=== PATIENT | female | born 1950 | race Caucasian/White ===

== ENCOUNTER 2019-07-23 17:52 | Inpatient (IN) | payer OTHER, MEDICARE ==
[~2019-07-23] VITALS: Ht 165.1 cm; Wt 59.4 kg
[2019-07-23] MEDS ORDERED: ACETAMINOPHEN 650 MG SUPP.RECT RC ONE ×2 (18:15→18:45)
[2019-07-23 18:27] LABS: BASOPHILS % (AUTO) 0.4 % (0.0-2.0); EOSINOPHILS % (AUTO) 0.8 % (0.0-7.0); HEMATOCRIT 28.5 % (31.2-41.9); HEMOGLOBIN 9.4 g/dL (10.9-14.3); LYMPHOCYTES # (AUTO) 1.7 K/uL (20.0-40.0); LYMPHOCYTES % (AUTO) 33.2 % (20.5-51.5); MEAN CORPUSCULAR HEMOGLOBIN 33.5 uug (24.7-32.8); MEAN CORPUSCULAR HGB CONC 33 g/dL (32.3-35.6); MEAN CORPUSCULAR VOLUME 101.8 fL (75.5-95.3); MONOCYTES # (AUTO) 0.9 K/uL (2.0-10.0); MONOCYTES % (AUTO) 17.8 % (0.0-11.0); NEUTROPHILS # (AUTO) 2.5 K/uL (1.8-8.9); NEUTROPHILS % (AUTO) 47.8 % (38.5-71.5); PLATELET COUNT (AUTO) 372 K/uL (179-408); WHITE BLOOD COUNT (AUTO) 5.1 K/uL (3.8-11.8)
[2019-07-23 18:37] LABS: CREATININE 0.8 mg/dL (0.6-1.3); POTASSIUM 4.1 mmol/L (3.5-5.1)
[2019-07-23] MEDS: DILTIAZEM HCL 25 MG IV IV ONE ×2 (18:42→19:12)
--- NOTE | 2019-07-23 18:42 | NUR ---
Heart rate =90s/min ,normal sinus rhythm, Dr Greer notified. IV Cardizeesthela on HOLD for now.
[2019-07-23 18:45] LABS: LYMPHOCYTES % (MANUAL) 33 % (20-40); MONOCYTES % (MANUAL) 14 % (2-10); NEUTROPHILS % (MANUAL) 53 % (42-75)
[2019-07-23] MEDS ORDERED: IV NORMAL SALINE 1000 ML BAG IV ONE (18:45)
[2019-07-23 18:54] LABS: BILIRUBIN,TOTAL 0.3 mg/dL (0.2-1.0); TOTAL PROTEIN, SERUM 7.3 g/dL (6.4-8.2)
[2019-07-23] MEDS ORDERED: MEROPENEM 1,000 MG in IV NORMAL SALINE 100 ML IV ONE (19:00)
[2019-07-23] MEDS ORDERED: AZITHROMYCIN IV 500 MG in IV DEXTROSE 5% 250 ML IV ONE (19:00)
--- NOTE | 2019-07-23 19:07 | NUR ---
still for COVID-19 swab, IV NS bolus end time, urinary catheter to be removed, IV antibiotic medicines to be given, repeat EKG to be done, endorsed to BALDEV Ramos accordingly
[2019-07-23] MEDS ORDERED: MEROPENEM 1GM/NS 100ML IVPB **ER PYXIS ONLY IV ONE (19:11)
[2019-07-23] MEDS ORDERED: DILTIAZEM HCL 25 MG IV ONE (19:12)
--- NOTE | 2019-07-23 19:25 | NUR ---
Pt. admitted to Telemetry, under care of Dr. Ace Phillips. Diagnosis. Pneumonia. Pt swabbed for covid, specimen sent to lab. Belongs List completed. MRSA swab done.
[2019-07-23 19:31] LABS: *BILIRUBIN,URIN NEGATIVE (NEGATIVE); *BLOOD, URINE NEGATIVE (NEGATIVE); *CLARITY,URINE CLEAR (CLEAR); *COLOR,URINE YELLOW (YELLOW); *KETONES,URINE NEGATIVE (NEGATIVE); LEUKOCYTE ESTERASE ,URINE NEGATIVE (NEGATIVE); NITRITE, URINE NEGATIVE (NEGATIVE); PH,URINE 8.5 (5.0-8.0); UGLUCOSE NEGATIVE (NEGATIVE)
[2019-07-23 19:35] LABS: BACTERIA,URINE NONE SEEN /HPF (NONE SEEN); RBC,URINE 0-3 /HPF (0-3); SQUAMOUS EPITHELIAL CELL,UR FEW /HPF (NONE SEEN); WBC,URINE 0-3 /HPF (0-3)
[2019-07-23] MEDS ORDERED: AZITHROMYCIN 500MG/ D5W 250ML IVPB **ER PYXIS ONLY IV ONE (19:44)
[2019-07-23 20:30] VITALS: BP 96/66
[2019-07-23] MEDS ORDERED: IOHEXOL 300MG/ML 100 ML INFUS..BTL ONE (20:35)
[2019-07-23] MEDS ORDERED: IV NORMAL SALINE 250 ML IV ONE (20:35)
[2019-07-23] MEDS ORDERED: SWABABLE VALVE TRANSFER SET EA MC ONE (20:35)
[2019-07-23] MEDS ORDERED: ACETAMINOPHEN 325 MG TABLET GT PRN (20:45)
[2019-07-23] MEDS ORDERED: VALPROATE SODIUM GT SCH (20:45)
[2019-07-23] MEDS ORDERED: FLEET ENEMA 133 ML BOTTLE RC PRN (20:45)
[2019-07-23] MEDS ORDERED: Medication Not On Formulary EA (Levetiracetam 500 MG) GT SCH (20:45)
[2019-07-23] MEDS ORDERED: MAGNESIUM HYDROXIDE 30 ML LIQUID UDC PO PRN (20:45)
--- NOTE | 2019-07-23 20:58 | NUR ---
Pt taken to radiology dept for CTA. Pt then transferred to Room 304.
[2019-07-23] MEDS ORDERED: MORPHINE SULFATE 2 MG/1 ML DISP.SYRIN IV PRN (21:00)
[2019-07-23 21:05] VITALS: BP 96/66
--- NOTE | 2019-07-23 21:15 | NUR ---
received patient from er. patient is non-verbal. placed on tele sr. temperature 9.65 rectally. warm blankets applied. o2 02 2l nc. no resp. distress noted. all needs attended.
--- NOTE | 2019-07-23 21:30 | NUR ---
spoke with dr. oleg. zhao to use g-tube for medications. all needs attended.
[2019-07-23] MEDS ORDERED: VANCOMYCIN IV 1 G in PREMIXED 0 EACH IV ONE (21:45)
[2019-07-23] MEDS: TRAZODONE 50 MG TABLET GT SCH (22:09)
[2019-07-23] MEDS: QUETIAPINE FUMARATE 25 MG TABLET GT SCH (22:10)
[2019-07-23] MEDS: Z GUARD REMEDY PASTE 57 GM TUBE TOP SCH (22:10)
[2019-07-23] MEDS: QUETIAPINE FUMARATE 25 MG TABLET PO SCH (22:10)
--- NOTE | 2019-07-23 22:15 | NUR ---
rechecked patients bp rectally and received 95.5, patient converted to a-fib from sinus 100-120's. called dr hill and received orders for patient to be transferred to icu. turntable engineer and nursing produce department supervisor called/notified.
[2019-07-23] MEDS: VALPROIC ACID 250 MG/5 ML LIQUID UDC GT SCH (22:19)
[2019-07-23] MEDS: APIXABAN 5 MG TABLET GT SCH (22:19)
[2019-07-23] MEDS ORDERED: VANCOMYCIN IV 200 ML ONE (22:29)
[2019-07-23] MEDS: PIPERACILLIN SODIUM/TAZOBACTAM 3.375 G in IV DEXTROSE 5% 50 ML IV SCH (22:47)
--- NOTE | 2019-07-23 23:15 | NUR ---
PATIENT TRANSFERRED TO ICU ORDERED PER MD. ALL NEEDS ATTENDED.
[2019-07-23 23:23] VITALS: BP 101/67
--- NOTE | 2019-07-23 23:23 | NUR ---
RECEIVED TRANSFER FROM TELEMETRY . PATIENT HYPOTHERMIC TEMP 95.9F RECTALLY ,PLACED RICK HUGGER AND PUT ON HIGH HEAT MODE (43.c),INCONTINENT OF URINE PLACED MASSEY CATHETER DONE ASEPTICALLY . OBTAINED URINE ABOUT 350 ML OF YELLOWISH URINE WITH SOME SEDIMENTS .CHANGE SOLED LINENS AND PADS .SACRAL AREA NOTED TO BE NON BLANCHABLE REDNESS PLACED MEPILEX AND [employer] AND WOUND CONSULT WELL Z GUARD .MRSA TO BILATERAL NARES AND INFLUENZA A AND B DONE ,SEND TO LAB . DR: BESSIE CAME AND SAW PATIENT INFORMED ABOUT THE LOW TEMP AND LOW ,BP AND AFIB ON THE HEART MONITOR,PATIENT GOES IN AND OUT AFIB TO SR .PATIENT OPEN EYES TO NAME BUT LETHARGIC AND VERY WEAK DOES NOT FOLLOW COMMANDS . TOLERATING 02 NASAL CANNULA AT 3 L/MIN SATURATION 100% RR 19 . HOB UP . PATIENT IS DROPLET ISOLATION PUI R/O COVID . FULL CODE.
[2019-07-23] MEDS ORDERED: AMIODARONE HCL IV 450 MG in IV DEXTROSE 5% 250 ML IV PRN (23:30)
[2019-07-23] MEDS ORDERED: PHENYLEPHRINE IV 50 MG in IV NORMAL SALINE 245 ML IV PRN (23:30)
[2019-07-23 23:42] VITALS: BP 84/68
[2019-07-24] VITALS (52 sets, daily range): BP systolic 72–151; BP diastolic 46–116
[2019-07-24] MEDS ORDERED: AMIODARONE HCL IV 450 MG in IV DEXTROSE 5% 250 ML IV PRN (00:15)
[2019-07-24] MEDS ORDERED: Z GUARD REMEDY PASTE 57 GM TUBE TOP PRN (00:15)
[2019-07-24] MEDS ORDERED: PHENYLEPHRINE IV 50 MG in IV NORMAL SALINE 245 ML IV PRN (00:15)
[2019-07-24] MEDS ORDERED: AMIODARONE HCL 150 MG/3 ML VIAL IV ONE (00:45)
[2019-07-24] MEDS ORDERED: PHENYLEPHRINE 10 MG/1 ML VIAL ONE (00:45)
[2019-07-24] MEDS: AMIODARONE HCL IV 450 MG in IV DEXTROSE 5% 250 ML IV PRN ×3 (00:59→09:45)
--- NOTE | 2019-07-24 00:59 | NUR ---
STARTED AMIODARONE DRIP AT 1 MG/MIN TO FOLLOW AMIODARONE DRIP PROTOCOL . BP 109/63 HR 69.RR 20 SATURATION 97% ON 02 AT 3 L MIN .
--- NOTE | 2019-07-24 01:30 | NUR ---
TEMP 97.7 RECTALLY ,PLACED RICK HUGGER TO MEDIUM HEAT (38.0 F) WILL CONTINUE TO MONITOR TEMP .
--- NOTE | 2019-07-24 01:45 | NUR ---
STARTED ON NEOSYNEPHRINE DRIP BP LOW 82/58 AT 0.5 MCG/KG/MIN
[2019-07-24] MEDS: PHENYLEPHRINE IV 50 MG in IV NORMAL SALINE 245 ML IV PRN (01:48)
--- NOTE | 2019-07-24 02:00 | NUR ---
INCREASE NEOSYNEPHRINE DRIP TO 1 MCG/KG/MIN BP LOW 72/55 MAP 64. TO KEEP SBP >90 MM/HG.
[2019-07-24 04:59] LABS: BASOPHILS % (AUTO) 0.7 % (0.0-2.0); EOSINOPHILS # (AUTO) 0.1 K/uL (0.0-0.7); EOSINOPHILS % (AUTO) 1.8 % (0.0-7.0); HEMATOCRIT 26.9 % (31.2-41.9); HEMOGLOBIN 8.9 g/dL (10.9-14.3); LYMPHOCYTES # (AUTO) 1.8 K/uL (20.0-40.0); LYMPHOCYTES % (AUTO) 31.7 % (20.5-51.5); MEAN CORPUSCULAR HEMOGLOBIN 33.6 uug (24.7-32.8); MEAN CORPUSCULAR HGB CONC 33 g/dL (32.3-35.6); MEAN CORPUSCULAR VOLUME 101.8 fL (75.5-95.3); MONOCYTES # (AUTO) 1.2 K/uL (2.0-10.0); MONOCYTES % (AUTO) 21.6 % (0.0-11.0); NEUTROPHILS # (AUTO) 2.5 K/uL (1.8-8.9); NEUTROPHILS % (AUTO) 44.2 % (38.5-71.5); PLATELET COUNT (AUTO) 443 K/uL (179-408); RED BLOOD CELL COUNT(AUTO) 2.64 MIL/uL (3.63-4.92); WHITE BLOOD COUNT (AUTO) 5.6 K/uL (3.8-11.8)
--- NOTE | 2019-07-24 05:00 | NUR ---
acute medical restraints applied ,bilateral soft wrist used patient trying to get oob and keep removing icu equipment .
[2019-07-24 05:24] LABS: THYROID STIMULATING HORMONE 4.727 mIU/mL (0.358-3.740)
[2019-07-24] MEDS: PIPERACILLIN SODIUM/TAZOBACTAM 3.375 G in IV DEXTROSE 5% 50 ML IV SCH ×3 (05:24→21:20)
[2019-07-24 05:32] LABS: IRON, SERUM 31 ug/dL (50-175)
--- NOTE | 2019-07-24 05:38 | NUR ---
off Ritchie prakash temp 98.0 F axillary ,am care done ,bath patient ,changed soiled linens and gown . turned and reposition .
[2019-07-24 05:40] LABS: ALANINE AMINOTRANSFERASE < 6 U/L (14-59); ALKALINE PHOSPHATASE 58 U/L (50-136); ASPARTATE AMINOTRANSFERASE 16 U/L (15-37); BILIRUBIN,TOTAL 0.3 mg/dL (0.2-1.0); CARBON DIOXIDE 28 mmol/L (21-32); CHLORIDE 109 mmol/L (98-107); CHOLESTEROL 85 mg/dL (<200); CREATININE 0.9 mg/dL (0.6-1.3); GLUCOSE 70 mg/dL (74-106); HDL CHOLESTEROL 24 mg/dL (40-60); MAGNESIUM 1.7 mg/dL (1.8-2.4); POTASSIUM 4.2 mmol/L (3.5-5.1); TOTAL PROTEIN, SERUM 6.7 g/dL (6.4-8.2); TRIGLYCERIDES 78 MG/DL (30-150); UREA NITROGEN, BLOOD 15 mg/dL (7-18)
[2019-07-24 05:57] LABS: VALPROIC ACID 29 ug/mL (50-100)
[2019-07-24 05:58] LABS: BAND % (MANUAL) 1 % (0-10); EOSINOPHILS % (MANUAL) 1 % (0-8); LYMPHOCYTES % (MANUAL) 32 % (20-40); METAMYELOCYTES % 1 % (0-1); MONOCYTES % (MANUAL) 17 % (2-10); NEUTROPHILS % (MANUAL) 48 % (42-75)
[2019-07-24] MEDS: PANTOPRAZOLE SODIUM 40 MG VIAL IV SCH (08:04)
[2019-07-24] MEDS: FUROSEMIDE 20 MG/2 ML VIAL IV SCH (08:04)
[2019-07-24] MEDS: Z GUARD REMEDY PASTE 57 GM TUBE TOP SCH ×4 (08:04→21:14)
[2019-07-24] MEDS: levETIRAcetam 500 MG/5 ML LIQUID UDC GT SCH ×3 (08:05→16:53)
[2019-07-24] MEDS: GABAPENTIN 400 MG CAPSULE GT SCH ×4 (08:05→16:54)
[2019-07-24] MEDS: QUETIAPINE FUMARATE 25 MG TABLET GT SCH ×4 (08:05→16:54)
[2019-07-24] MEDS: APIXABAN 5 MG TABLET GT SCH ×3 (08:06→16:58)
[2019-07-24] MEDS: VALPROIC ACID 250 MG/5 ML LIQUID UDC GT SCH ×4 (08:06→16:55)
--- NOTE | 2019-07-24 12:38 | NUR ---
WOUND CARE CONSULT: REVIEWED PHOTO DOCUMENTATION, NURSING NOTES, AND CHART WHICH SHOWS INTACT DEEP TISSUE INJURY TO SACRUM PRESENT ON ADMISSION. RECOMMENDATIONS MADE FOR SKIN PROTECTION AND WOUND CARE. DISCUSSED WITH NURSING STAFF. FIRST STEP LOW AIRLOSS MATTRESS ON ORDER. MD IN AGREEMENT WITH PLAN OF CARE.
--- NOTE | 2019-07-24 13:12 | NUR ---
Clinical pharmacy note-Vancomycin dosing per pharmacy Subjective: To start Vancomycin dosing on this patient for fever(ID note: fever, GT malfunction) Objective; BUN 15 Scr 0.9 WBC 5.6 Temp 98 Ht 165.1cm Wt 59.874kg Assessment/Plan: Patient had Vancomycin 1gram last night at 2145. Will continue Vancomycin 1gram every 20hrs(second dose today at 1700) and draw trough by 4th dose(not ordered yet) for expected trough around 15. Will monitor daily.
[2019-07-24] MEDS: MAGNESIUM SULFATE/D5W 100 ML IV SCH ×3 (13:27→16:53)
[2019-07-24] MEDS: IV D5/ 0.9% NACL 1,000 ML IV PRN (13:46)
[2019-07-24] MEDS: TRAZODONE 50 MG TABLET GT SCH (16:56)
[2019-07-24] MEDS: VANCOMYCIN IV 1,000 MG in IV DEXTROSE 5% 250 ML IV SCH (17:23)
--- NOTE | 2019-07-24 17:40 | NUR ---
Spoke with Dr. Bah on the telephone. stated that it was okay to insert PICC line if ruben restarted.
--- NOTE | 2019-07-24 19:02 | NUR ---
PICC Line RN here to see pt for PICC line insertion.
--- NOTE | 2019-07-24 19:30 | NUR ---
patient is awake , unbale to follow command , picc line nurse at the bedside , amiodarone running at 0.5 mg , neosynephrine at 0.1 mcg , d5 ns at 75 ml . lucero intact , on oxygen at 3l nc , no fever
--- NOTE | 2019-07-24 19:40 | NUR ---
picc line inserted right upper arm , small amount of blood tinged on surrounding area , ok to use , fllushes well with blood return
[2019-07-24] MEDS ORDERED: AZITHROMYCIN IV 500 MG in IV DEXTROSE 5% 250 ML IV SCH (20:00)
[2019-07-24] MEDS: QUETIAPINE FUMARATE 25 MG TABLET PO SCH ×2 (21:00→21:58)
[2019-07-24] MEDS: LORAZEPAM 0.5 MG TABLET GT PRN (21:58)
--- NOTE | 2019-07-24 23:40 | NUR ---
lab levels being monitored and being corrected accordingly 2 g of magnesium given today Addendum: 07/24/19 at 2340 by JEFFREY MULLEN RN Amended: Brenda added. Addendum: 07/24/19 at 234 by JEFFREY MULLEN RN Amended: Brenda added. Addendum: 07/24/19 at 2343 by JEFFREY MULLEN RN Amended: Links added.
--- NOTE | 2019-07-24 23:42 | NUR ---
patient is neosynephrine and being titrated accordingly to keep sbp > 90 Addendum: 07/24/19 at 2343 by JEFFREY MULLEN RN Amended: Links added.
--- NOTE | 2019-07-24 23:42 | NUR ---
temperature being monitored Addendum: 07/24/19 at 2342 by JEFFREY MULLEN RN Amended: Brenda barksdale. Addendum: 07/24/19 at 2343 by JEFFREY MULLEN RN Amended: Brenda barksdale.
--- NOTE | 2019-07-24 23:43 | NUR ---
lab levels being monitored , [facility] , was here to see the patient and given an update and patient is on antibiotics Addendum: 07/24/19 at 2344 by JEFFREY MULLEN RN Amended: Links added. Addendum: 07/24/19 at 2345 by JEFFREY MULLEN RN Amended: Links added.
--- NOTE | 2019-07-24 23:45 | NUR ---
mental status being monitored for deterioration and breathing tolrance to current onxygen of 3 l nc Addendum: 07/24/19 at 2345 by JEFFREY MULLEN RN Amended: Links added.
[2019-07-25] VITALS (43 sets, daily range): BP systolic 94–150; BP diastolic 61–103
[2019-07-25] MEDS: PHENYLEPHRINE IV 50 MG in IV NORMAL SALINE 245 ML IV PRN (01:16)
[2019-07-25 05:29] LABS: BASOPHILS % (AUTO) 0.5 % (0.0-2.0); EOSINOPHILS # (AUTO) 0.1 K/uL (0.0-0.7); EOSINOPHILS % (AUTO) 0.9 % (0.0-7.0); HEMATOCRIT 23.9 % (31.2-41.9); LYMPHOCYTES # (AUTO) 0.9 K/uL (20.0-40.0); LYMPHOCYTES % (AUTO) 14.6 % (20.5-51.5); MEAN CORPUSCULAR HEMOGLOBIN 34.3 uug (24.7-32.8); MEAN CORPUSCULAR HGB CONC 34 g/dL (32.3-35.6); MONOCYTES # (AUTO) 0.9 K/uL (2.0-10.0); MONOCYTES % (AUTO) 13.9 % (0.0-11.0); NEUTROPHILS # (AUTO) 4.5 K/uL (1.8-8.9); NEUTROPHILS % (AUTO) 70.1 % (38.5-71.5); PLATELET COUNT (AUTO) 330 K/uL (179-408); WHITE BLOOD COUNT (AUTO) 6.5 K/uL (3.8-11.8)
[2019-07-25] MEDS: PIPERACILLIN SODIUM/TAZOBACTAM 3.375 G in IV DEXTROSE 5% 50 ML IV SCH ×3 (05:39→21:22)
[2019-07-25 05:50] LABS: CREATININE 0.9 mg/dL (0.6-1.3); MAGNESIUM 1.6 mg/dL (1.8-2.4); PHOSPHOROUS 3.8 mg/dL (2.5-4.9); POTASSIUM 3.6 mmol/L (3.5-5.1)
[2019-07-25 05:53] LABS: RED BLOOD CELL COUNT(AUTO) 2.34 MIL/uL (3.63-4.92)
--- NOTE | 2019-07-25 06:57 | NUR ---
received report patient is negative for covid 19, called dr payne for magnesium level of 1.6 this morning , received oder of 1 gm of magnesium sulfate
[2019-07-25] MEDS ORDERED: MAGNESIUM SULFATE/D5W 100 ML IV SCH (07:00)
[2019-07-25] MEDS: IV D5/ 0.9% NACL 1,000 ML IV PRN (07:33)
--- NOTE | 2019-07-25 07:58 | NUR ---
Pulmonary services, Dr. Foss in the unit to see and examine patient, full report given. Orders to continue with care plan received.
[2019-07-25] MEDS: PANTOPRAZOLE SODIUM 40 MG VIAL IV SCH (08:36)
[2019-07-25] MEDS: QUETIAPINE FUMARATE 25 MG TABLET GT SCH ×3 (08:36→16:33)
[2019-07-25] MEDS: FUROSEMIDE 20 MG/2 ML VIAL IV SCH ×2 (08:36→16:33)
[2019-07-25] MEDS: levETIRAcetam 500 MG/5 ML LIQUID UDC GT SCH ×2 (08:40→16:32)
[2019-07-25] MEDS: VALPROIC ACID 250 MG/5 ML LIQUID UDC GT SCH ×3 (08:41→16:32)
[2019-07-25] MEDS: GABAPENTIN 400 MG CAPSULE GT SCH ×3 (08:41→16:32)
[2019-07-25] MEDS: Z GUARD REMEDY PASTE 57 GM TUBE TOP SCH ×4 (08:42→21:05)
[2019-07-25] MEDS: APIXABAN 5 MG TABLET GT SCH ×2 (08:45→16:41)
--- NOTE | 2019-07-25 08:58 | NUR ---
Clinical pharmacy note-Vancomycin dosing per pharmacy Subjective: To continue Vancomycin dosing on this patient for fever(ID note: fever, GT malfunction) Objective; BUN 11 Scr 0.9 WBC 6.5 Temp 99 Ht 165.1cm Wt 59.874kg Assessment/Plan: Will continue same dose of Vancomycin 1gram IVPB every 20hrs. 3rd dose today at 1300) and draw trough by 4th dose(ordered for 07/25 at 0830) . Pharmacy shall review the level in am & adjust the dose if needed. Will monitor daily.
[2019-07-25] MEDS ORDERED: AMIODARONE HCL 200 MG TABLET PO SCH (09:00)
--- NOTE | 2019-07-25 10:00 | NUR ---
Attending physician Dr. Olvin Casas in the unit to see and examine patient, full report given see order hx.
[2019-07-25] MEDS: MAGNESIUM SULFATE/D5W 100 ML IV SCH ×2 (10:20→11:08)
[2019-07-25] MEDS: POTASSIUM CHLORIDE 50 ML IV SCH ×2 (10:20→11:08)
[2019-07-25] MEDS ORDERED: MAGNESIUM HYDROXIDE 30 ML LIQUID UDC GT PRN (11:04)
[2019-07-25] MEDS: VANCOMYCIN IV 1,000 MG in IV DEXTROSE 5% 250 ML IV SCH (12:02)
[2019-07-25] MEDS: TRAZODONE 50 MG TABLET GT SCH (17:00)
--- NOTE | 2019-07-25 20:00 | NUR ---
RECEIVED PT. VERBALLY NONRESPONSIVE. ON O2 @ 3LNC W/ O2 SAT OF 99%. PICC LINE INTACT ON MARY GRACE, PORTS ARE HEP LOCK. & PATENT. G-TUBE INTACT & PATENT FOR MEDS ONLY. REPOSITIONED ON HER SIDE W/ HOB ELEVATED.
[2019-07-25] MEDS: AMIODARONE HCL 200 MG TABLET GT SCH (21:04)
[2019-07-25] MEDS: QUETIAPINE FUMARATE 25 MG TABLET PO SCH (21:05)
--- NOTE | 2019-07-25 22:00 | NUR ---
PT MAKING UNUSUAL SOUNDS , NOT IN ANY DISTRESS.
[2019-07-26] VITALS (15 sets, daily range): BP systolic 90–130; BP diastolic 52–99
--- NOTE | 2019-07-26 04:00 | NUR ---
AM CARE DONE. ORAL CARE DONE. CENTRAL LINE DRSG. CHANGED. TEMP-94.5 RECTALLY BEAR HUGGER APPLIED. REPOSITIONED ON HER SIDE W/ HOB ELEVATED.
[2019-07-26] MEDS: PIPERACILLIN SODIUM/TAZOBACTAM 3.375 G in IV DEXTROSE 5% 50 ML IV SCH ×2 (05:22→14:47)
[2019-07-26 05:52] LABS: BASOPHILS % (AUTO) 0.5 % (0.0-2.0); EOSINOPHILS # (AUTO) 0.1 K/uL (0.0-0.7); EOSINOPHILS % (AUTO) 2.8 % (0.0-7.0); HEMATOCRIT 25.4 % (31.2-41.9); HEMOGLOBIN 8.6 g/dL (10.9-14.3); LYMPHOCYTES # (AUTO) 1.2 K/uL (20.0-40.0); LYMPHOCYTES % (AUTO) 27.9 % (20.5-51.5); MEAN CORPUSCULAR HEMOGLOBIN 34.2 uug (24.7-32.8); MEAN CORPUSCULAR HGB CONC 34 g/dL (32.3-35.6); MEAN CORPUSCULAR VOLUME 100.9 fL (75.5-95.3); MONOCYTES # (AUTO) 0.6 K/uL (2.0-10.0); MONOCYTES % (AUTO) 14.3 % (0.0-11.0); NEUTROPHILS # (AUTO) 2.4 K/uL (1.8-8.9); NEUTROPHILS % (AUTO) 54.5 % (38.5-71.5); PLATELET COUNT (AUTO) 408 K/uL (179-408); RED BLOOD CELL COUNT(AUTO) 2.52 MIL/uL (3.63-4.92); WHITE BLOOD COUNT (AUTO) 4.4 K/uL (3.8-11.8)
[2019-07-26 05:56] LABS: CREATININE 0.8 mg/dL (0.6-1.3); MAGNESIUM 1.9 mg/dL (1.8-2.4); POTASSIUM 3.1 mmol/L (3.5-5.1)
--- NOTE | 2019-07-26 06:00 | NUR ---
RESTING QUITELY, TEMP-97.7 ORALLY.
[2019-07-26] MEDS: PANTOPRAZOLE ORAL SUSPENSION 40 MG SUSPDR.PKT GT SCH (08:45)
[2019-07-26] MEDS: QUETIAPINE FUMARATE 25 MG TABLET GT SCH ×3 (08:46→17:23)
[2019-07-26] MEDS: APIXABAN 5 MG TABLET GT SCH ×2 (08:47→17:37)
[2019-07-26] MEDS: levETIRAcetam 500 MG/5 ML LIQUID UDC GT SCH ×2 (08:48→17:23)
[2019-07-26] MEDS: GABAPENTIN 400 MG CAPSULE GT SCH ×3 (08:48→17:23)
[2019-07-26] MEDS: VALPROIC ACID 250 MG/5 ML LIQUID UDC GT SCH ×3 (08:54→17:23)
[2019-07-26] MEDS: AMIODARONE HCL 200 MG TABLET GT SCH ×2 (09:00→21:00)
[2019-07-26] MEDS: FUROSEMIDE 20 MG/2 ML VIAL IV SCH (09:01)
[2019-07-26] MEDS: Z GUARD REMEDY PASTE 57 GM TUBE TOP SCH ×3 (09:01→21:02)
--- NOTE | 2019-07-26 09:45 | NUR ---
Clinical pharmacy note-Vancomycin dosing per pharmacy Subjective: To continue Vancomycin dosing on this patient for fever(ID note: fever, GT malfunction) Objective; BUN 11 Scr 0.8 WBC 4.4 Temp 94.5 Vanco trough level: 17.3 Ht 165.1cm Wt 59.874kg Assessment/Plan: Since vanco trough level is within therapeutic range, will continue same dose of Vancomycin 1gram IVPB every 20hrs. Next dose today at 0900). Will monitor renal function & adjust the dose if needed. Will monitor daily.
[2019-07-26] MEDS: VANCOMYCIN IV 1,000 MG in IV DEXTROSE 5% 250 ML IV SCH (10:56)
[2019-07-26] MEDS ORDERED: IV D5/ 0.9% NACL 1,000 ML IV PRN ×2 (11:30→19:30)
--- NOTE | 2019-07-26 11:50 | NUR ---
REPORT GIVEN TO JONATHAN DE PAZ.
--- NOTE | 2019-07-26 12:00 | NUR ---
PATIENT TAKEN OFF [facility] PATIENT HAS BEEN MARU THERMIC.
--- NOTE | 2019-07-26 12:13 | NUR ---
PATIENT TRANSFERRED TO TELE. DR ADAIR AT BEDSIDE AND SPOKE TO DR DEE TO CHANGE IVF TO D51/2NS. PENDING ORDER CHANGE PER DOCTOR JULITO.
[2019-07-26] MEDS ORDERED: POTASSIUM CHLORIDE 20 MEQ POWDER PACKET GT ONE (13:00)
[2019-07-26] MEDS ORDERED: SODIUM CHLORIDE 4 MEQ/ML VIAL 77 MEQ in IV 10% DEXTROSE 1,000 ML IV PRN (13:30)
--- NOTE | 2019-07-26 13:30 | NUR ---
Pt received from CCU, report from Flor. Pt VS stable, confused, yelling intermittently, restless. PRN medication administered as ordered for anxiety. 2 soft wrist restraints noted, perfusion adequate. Lucero catheter intact, draining clear yellow urine. NPO except meds via temporary "GT", lucero catheter in place to maintain open stoma noted, due to GT removal in ER. No residual. Call light within reach, frequent monitoring provided and repositioning. Will continue to monitor for safety.
[2019-07-26] MEDS: LORAZEPAM 0.5 MG TABLET GT PRN (13:49)
[2019-07-26] MEDS: TRAZODONE 50 MG TABLET GT SCH (18:14)
[2019-07-26] MEDS: BLOOD SUGAR DIAGNOSTIC 1 EACH STRIP VI SCH (18:16)
[2019-07-26] MEDS ORDERED: IV D5W-0.45% NS 1000 ML BAG IV PRN (19:00)
[2019-07-26] MEDS ORDERED: IV D5 1/2 NS 1000 ML 1,000 ML IV PRN (19:30)
[2019-07-26] MEDS: QUETIAPINE FUMARATE 25 MG TABLET PO SCH (21:01)
[2019-07-26] MEDS: MUPIROCIN 2% OINT 22 GM TUBE NS SCH (21:02)
--- NOTE | 2019-07-26 22:53 | NUR ---
Received pt sleeping intermittently with some episodes of yelling and trying to pull out tubings. AAO x1. On 3L O2 via NC, no acute distress noted. FLACC of 0 noted. Mireles catheter draining with yellow colored urine. Pt is NPO for G-tube replacement tomorrow. Soft restraints noted on wrists, assessment done, will continue to do so Q2H, perfusion adequate. PICC line on right upper arm, patent and intact, receiving D5 1/2 NS at 50 ml/ hr. Safety measures maintained. Call light and personal belongings within reach. Will continue to monitor.
[2019-07-27] VITALS: BP 115/66
[2019-07-27] MEDS: BLOOD SUGAR DIAGNOSTIC 1 EACH STRIP VI SCH ×5 (00:17→17:56)
[2019-07-27 04:00] VITALS: BP 132/75
[2019-07-27] MEDS: LORAZEPAM 0.5 MG TABLET GT PRN (04:58)
--- NOTE | 2019-07-27 05:53 | NUR ---
Pt slept intermittently with episodes of yelling and trying to pull out tubes. All needs attended to promptly. Mireles catheter draining well with yellow colored urine. PICC line, patent and intact. Air mattress in place. Turned and repositioned q2h. Will endorse accordingly to oncoming shift. Continue to monitor.
[2019-07-27 06:29] LABS: CREATININE 0.8 mg/dL (0.6-1.3); MAGNESIUM 1.6 mg/dL (1.8-2.4); PHOSPHOROUS 3.6 mg/dL (2.5-4.9); POTASSIUM 3.4 mmol/L (3.5-5.1)
[2019-07-27 06:33] LABS: BASOPHILS % (AUTO) 0.4 % (0.0-2.0); EOSINOPHILS # (AUTO) 0.1 K/uL (0.0-0.7); EOSINOPHILS % (AUTO) 2.9 % (0.0-7.0); HEMATOCRIT 26.1 % (31.2-41.9); HEMOGLOBIN 8.5 g/dL (10.9-14.3); LYMPHOCYTES # (AUTO) 1.7 K/uL (20.0-40.0); LYMPHOCYTES % (AUTO) 39.2 % (20.5-51.5); MEAN CORPUSCULAR HEMOGLOBIN 32.9 uug (24.7-32.8); MEAN CORPUSCULAR HGB CONC 33 g/dL (32.3-35.6); MEAN CORPUSCULAR VOLUME 100.8 fL (75.5-95.3); MONOCYTES # (AUTO) 0.4 K/uL (2.0-10.0); MONOCYTES % (AUTO) 8.9 % (0.0-11.0); NEUTROPHILS # (AUTO) 2.1 K/uL (1.8-8.9); NEUTROPHILS % (AUTO) 48.6 % (38.5-71.5); PLATELET COUNT (AUTO) 468 K/uL (179-408); RED BLOOD CELL COUNT(AUTO) 2.59 MIL/uL (3.63-4.92); WHITE BLOOD COUNT (AUTO) 4.4 K/uL (3.8-11.8)
[2019-07-27] MEDS: QUETIAPINE FUMARATE 25 MG TABLET GT SCH ×3 (08:34→16:27)
[2019-07-27] MEDS: GABAPENTIN 400 MG CAPSULE GT SCH ×3 (08:34→16:27)
[2019-07-27] MEDS: PANTOPRAZOLE ORAL SUSPENSION 40 MG SUSPDR.PKT GT SCH (08:34)
[2019-07-27] MEDS: AMIODARONE HCL 200 MG TABLET GT SCH (08:34)
[2019-07-27] MEDS: levETIRAcetam 500 MG/5 ML LIQUID UDC GT SCH ×2 (08:34→16:27)
[2019-07-27] MEDS: VALPROIC ACID 250 MG/5 ML LIQUID UDC GT SCH ×3 (08:34→16:27)
[2019-07-27] MEDS: Z GUARD REMEDY PASTE 57 GM TUBE TOP SCH ×2 (08:35→21:18)
[2019-07-27] MEDS: MUPIROCIN 2% OINT 22 GM TUBE NS SCH ×2 (08:35→21:19)
[2019-07-27] MEDS: APIXABAN 5 MG TABLET GT SCH ×2 (08:37→17:16)
[2019-07-27] MEDS ORDERED: POTASSIUM CHLORIDE 20 MEQ POWDER PACKET GT ONE (11:30)
[2019-07-27] MEDS ORDERED: MAGNESIUM OXIDE 400 MG TABLET GT ONE (11:30)
[2019-07-27 12:25] VITALS: BP 129/76
[2019-07-27 16:05] VITALS: BP 121/72
[2019-07-27] MEDS ORDERED: GLUCERNA 1.2 1000ML LIQUID GT PRN ×2 (16:30→17:00)
[2019-07-27] MEDS: TRAZODONE 50 MG TABLET GT SCH (17:08)
--- NOTE | 2019-07-27 19:00 | NUR ---
PATIENT AWAKE BUT NON VERBAL, WITH EPISODE OF YELLING FOR NO REASON. PATIENT WAS KEPT CLEAN AND DRY. GT FEEDING TOLERATE WELL, NO NAUSEA NO VOMITING, NO DIARRHEA. PATIENT HAS ABDOMINAL BINDER IN PLACE. CONT TO MONITOR.
[2019-07-27 20:13] VITALS: BP 123/73
--- NOTE | 2019-07-27 20:30 | NUR ---
BLOOD SUGAR 81 AT THIS TIME. CONT TO MONITOR.
[2019-07-27] MEDS: QUETIAPINE FUMARATE 25 MG TABLET PO SCH (20:37)
[2019-07-27] MEDS ORDERED: AMIODARONE HCL 200 MG TABLET GT SCH (21:00)
--- NOTE | 2019-07-27 22:03 | NUR ---
PATIENT ALERT WITH CONFUSION DUE MENTAL HEALTH CONDITION. GT SITE INTACT WITH ABDOMINAL BINDER. [facility] SPOKE TO SALONI DE PAZ TO GIVE REPORT AND UPDATE. PATIENT MASSEY CATH PATENT DRAINING WITH YELLOW COLOR URINE. AMBULANCE WAS INSTRUCTED TO WATCH PATIENT NOT TO PULLED HER NEW GT. GT PATENT WITH SMALL RESIDUAL 50CC. GT FEEDING TOLERATE WELL. PATIENT R UPPER ARM PICC LINE WAS REMOVED, CATHETER INTACT NO TEAR NOTED. PATIENT STABLE AND IN FAIR CONDITION.
--- NOTE | 2019-07-29 21:00 | NUR ---
IV stop times: - IV Sodium Chloride 0.9% 1000ml started at 1858. IV stop time at 1999. - Meropenem 1g in NS 100ml started at 192. IV stop time at 1999. - Azithromycin 500mg in D5 250ml started at 2001. IV stop time at 2099.
== END 2019-07-27 22:12 | DRG 720 ==
LOC: ER 17:52 → TELE3 20:06 → CCU 23:15 → TELE3 07-26 12:26 → MEDSURG3 07-27 11:30
PROVIDERS: ADMIT Internal Medicine
PROC: B548ZZA Ultrasonography of Superior Vena Cava, Guidance (ICD-10-PCS; principal; 2019-07-24)
PROC: 02HV33Z Insertion of Infusion Device into Superior Vena Cava, Percutaneous Approach (ICD-10-PCS; principal; 2019-07-24)
PROC: 0D20XUZ Change Feeding Device in Upper Intestinal Tract, External Approach (ICD-10-PCS; 2019-07-27)
DX: A41.9 Sepsis, unspecified organism (principal); J96.01 Acute respiratory failure with hypoxia; E43 Unspecified severe protein-calorie malnutrition; R65.21 Severe sepsis with septic shock; G92 Toxic encephalopathy; I50.21 Acute systolic (congestive) heart failure; D68.69 Other thrombophilia; J91.8 Pleural effusion in other conditions classified elsewhere; J18.9 Pneumonia, unspecified organism; I31.3 Pericardial effusion (noninflammatory); I48.0 Paroxysmal atrial fibrillation; I48.92 Unspecified atrial flutter; R13.10 Dysphagia, unspecified; F03.90 Unspecified dementia, unspecified severity, without behavioral disturbance, psychotic disturbance, mood disturbance, and anxiety; G40.909 Epilepsy, unspecified, not intractable, without status epilepticus; Z87.440 Personal history of urinary (tract) infections; Z86.73 Personal history of transient ischemic attack (TIA), and cerebral infarction without residual deficits; Z74.01 Bed confinement status; K94.23 Gastrostomy malfunction; J98.11 Atelectasis; I25.10 Atherosclerotic heart disease of native coronary artery without angina pectoris; Z68.21 Body mass index [BMI] 21.0-21.9, adult; I11.0 Hypertensive heart disease with heart failure; F20.9 Schizophrenia, unspecified; D50.9 Iron deficiency anemia, unspecified; M80.88XS Other osteoporosis with current pathological fracture, vertebra(e), sequela; M19.90 Unspecified osteoarthritis, unspecified site; F32.9 Major depressive disorder, single episode, unspecified; Z22.322 Carrier or suspected carrier of Methicillin resistant Staphylococcus aureus
CPT/HCPCS: 36415; 36569; 70030-TC; 71045; 71275; 80164; 83550; 83605; 83615; 83735; 84100; 84443; 85025; 85730; 87040; 87086; 87400; 93005; 93307; A4663; C9113; G0378; J0282; J0456; J1940; J2185; J2370; J2543; J3370; J3475; J3480; J3490; J7030; J7040; J7042; J7050; J7060; J7131; Q9967